=== PATIENT | male | born 1975 | race Caucasian/White ===

== ENCOUNTER → 2018-02-27 08:45 | Outpatient (CLI) | payer OTHER, SELFPAY ==
[2018-02-27 12:10] LABS: Absolute Lymphocyte Count 1.73 X10^3/ul (0.83-4.51); Absolute Neutrophil Count 3.9 X10^3/uL (2.0-7.7); Basophil# 0.01 X10^3/uL; Basophil% 0.2 % (0-1); Eosinophils% 1.6 % (0-5); Hematocrit 43.1 % (40-54); Hemoglobin 13.7 g/dl (13.0-16.5); Lymphocyte # 1.73 X10^3/ul (4.0); Lymphocyte % 27.4 % (19-41); Mean Corp Hgb Conc 31.8 g/gl (32-36); Mean Corpuscular Hgb 28.9 pg (27.0-32.0); Mean Corpuscular Volume 90.9 fL (80-94); Mean Platelet Vol. 11.3 fl (6.2-12.0); Monocyte# 0.61 X10^3/uL; Monocyte% 9.7 % (0-10); Neutrophil # 3.87 X10^3/uL (2.7-7.7); Neutrophil % 61.1 % (47-70); Platelet Count 211 K/mm3 (150-450); RBC Distribution Width CV 14.5 % (11.6-14.6); RBC Distribution Width SD 47.6 fl (35.1-43.9); Red Blood Count 4.74 M/mm3 (4.6-6.2); White Blood Count 6.3 K/mm3 (4.4-11.0)
[2018-02-27 12:16] LABS: POSITIVE COUNT NO; POSITIVE DIFFERENTIAL NO; POSITIVE MORPHOLOGY NO
[2018-02-27 12:37] LABS: ALB/GLOB Ratio 1.3 RATIO (0.9-2.4); AST(SGOT) 26 U/L (15-37); Alanine Aminotransfer ALT/SGPT 52 U/L (16-61); Albumin, Serum 4.2 g/dL (3.2-5.0); Alkaline Phosphatase 75 U/L (45-117); Anion Gap 5 (5-15); BUN 23 mg/dL (7-18); BUN/Creat Ratio 23.6 RATIO (10-20); Calcium,Total 8.6 mg/dL (8.5-10.1); Chloride 105 mmol/L (98-107); Cholesterol 144 mg/dL (200); Creatinine, Serum 0.98 mg/dL (0.70-1.30); EST Glomerular Filtration Rate 90 mL/min (>60); Est Glom Filt Rate - Afr Amer 108 mL/min (>60); Globulin 3.2 g/dL (2.2-4.2); Glucose 82 mg/dL (74-106); High Density Lipoprotein 54 mg/dL; Potassium 4.5 mmol/L (3.5-5.1); Protein, Total 7.4 g/dL (6.4-8.2); Sodium Level 139 mmol/L (136-145); Triglycerides 38 mg/dL; Very Low Density Lipoprotein 8 mg/dL (5-40)
== END ==
PROVIDERS: Family Provider Family Medicine; PCP Family Medicine; Visit Provider Family Medicine
DX: Z00.00 Encounter for general adult medical examination without abnormal findings (principal)
CPT/HCPCS: 36415; 80053; 80061; 85025

== ENCOUNTER 2019-04-28 22:37 | Emergency (ER) | payer OTHER, SELFPAY ==
[2019-04-28 22:38] VITALS: BP 156/97; PULSE 76; RESP 22; TEMP 36.3; O2SAT 100; BMI 31.1
[2019-04-28 23:23] LABS: White Blood Cells 0 SEEN /hpf (0-5)
[2019-04-28 23:27] LABS: Absolute Lymphocyte Count 1.72 X10^3/ul (0.83-4.51); Absolute Neutrophil Count 12.5 X10^3/uL (2.0-7.7); Basophil# 0.01 X10^3/uL; Basophil% 0.1 % (0-1); Eosinophil# 0.07 X10^3/uL; Eosinophils% 0.5 % (0-5); Hematocrit 42.1 % (40-54); Hemoglobin 13.9 g/dl (13.0-16.5); Lymphocyte # 1.72 X10^3/ul (4.0); Lymphocyte % 11.5 % (19-41); Mean Corpuscular Hgb 29.4 pg (27.0-32.0); Mean Corpuscular Volume 89.2 fL (80-94); Mean Platelet Vol. 10.1 fl (6.2-12.0); Monocyte# 0.62 X10^3/uL; Monocyte% 4.1 % (0-10); Neutrophil % 83.7 % (47-70); Platelet Count 207 K/mm3 (150-450); RBC Distribution Width CV 13.6 % (11.6-14.6); RBC Distribution Width SD 44.3 fl (35.1-43.9); Red Blood Count 4.72 M/mm3 (4.6-6.2); White Blood Count 14.9 K/mm3 (4.4-11.0)
[2019-04-28 23:28] LABS: Color, Urine Yellow (Yellow); Glucose, Dipstick Normal (Normal); Ketone-Dipstick 5 mg/dl (Negative); Leukocyte Esterase-Dipstick Negative /ul (Negative); Nitrite-Dipstick Negative (Negative); Occult Blood-Urine 50 /ul (Negative); Protein-Dipstick Negative (Negative); Urine Bilirubin Dipstick Negative (Negative); Urine Clarity Clear (Clear); Urine Urobilinogen Normal (Normal); Urine pH 6.5 (5.0 - 8.0)
[2019-04-28 23:33] LABS: POSITIVE COUNT NO; POSITIVE DIFFERENTIAL NO; POSITIVE MORPHOLOGY NO
[2019-04-28 23:35] LABS: Amorphous Sediment 1+; Mucous, Urine 1+ /hpf (<or=2+); Red Blood Cells-Urine 5-10 SEEN /hpf (0-5)
[2019-04-28 23:36] LABS: Bacteria RARE /hpf (None Seen); Squamous Epithelial Cells - UA 0-5 SEEN /hpf (0-5)
[2019-04-28 23:40] LABS: Anion Gap 5 (5-15); BUN 33 mg/dL (7-18); BUN/Creat Ratio 22.9 RATIO (10-20); Calcium,Total 9.1 mg/dL (8.5-10.1); Chloride 105 mmol/L (98-107); Creatinine, Serum 1.44 mg/dL (0.70-1.30); EST Glomerular Filtration Rate 57 mL/min (>60); Est Glom Filt Rate - Afr Amer 69 mL/min (>60); Estimated Creatinine Clearance 63.99 ml/min; Glucose 160 mg/dL (74-106); Potassium 4.3 mmol/L (3.5-5.1); Sodium Level 137 mmol/L (136-145)
--- NOTE | 2019-04-29 00:04 | ED.DCSUM_ITS ---
- ER Visit Summary Date of Service: 04/29/19 Chief Complaint: Right flank pain History of Present Illness: The patient is a 43 M presenting with right flank pain. He states this started suddenly around 8 PM. He has pain in his right flank that radiates to his right groin. He has no personal history of kidney stones. He does have a family history of kidney stones. He tried ibuprofen at home. States the pain is starting to subside. He noticed his urine was darker than normal. Denies other complaints. Physical Examination: Vitals are stable. Patient is afebrile. Alert no acute distress. HEENT exam is unremarkable. Neck is supple. Lungs are clear and equal bilaterally. Heart is regular rate and rhythm. Abdomen is soft nontender nondistended. Back: Mild right CVA tenderness Extremities are unremarkable. Skin is warm and dry. Remainder of exam is unremarkable. Emergency Department Course and Treatment: CBC shows white count 14.9. Glucose 160, BUN 33, creatinine 1.44. Urinalysis shows 0 white cells, 5-10 red blood cells. He is given IV fluids. He declines pain medications. CT abdomen pelvis shows mild right hydronephrosis and hydroureter with a punctate right UVJ calculus. On reevaluation, patient remains comfortable. He is given a short course of [place] for home. He is advised to follow-up with urology. Advised return to ED if worsening complaints. Disposition: Discharge home Impression: Urolithiasis This note was generated with [employer] dictation software. It may contain incorrect words, spelling, and punctuation that were not noted in review of the chart prior to signing ED Disposition - Plan for ED Patient: Instructions: ED Stone Renal W Colic Prescriptions: Hydrocodone Bitart/Apap 5-325 [[place] 5MG-325MG] 1 tablet PO Q6H PRN PRN 3 Days #10 tablet PRN Reason: Pain Referrals: Branden Jones MD [STAFF PHYSICIAN] - Jonas Betancourt DO [Primary Care Provider] -
[2019-04-29 00:07] VITALS: BP 148/90; PULSE 76; RESP 16; O2SAT 98
[2019-04-29] MEDS: 0.9% Normal Saline 1,000 ML 999 ML IV (00:19)
--- NOTE | 2019-04-29 01:40 | DCINST.ED_ITS ---
ED Disposition - Plan for ED Patient: Instructions: ED Stone Renal W Colic Prescriptions: Hydrocodone Bitart/Apap 5-325 [[place] 5MG-325MG] 1 tablet PO Q6H PRN PRN 3 Days #10 tablet PRN Reason: Pain Referrals: Jonas Betancourt DO [Primary Care Provider] - Branden Jones MD [STAFF PHYSICIAN] -
[2019-04-29] MEDS: HYDROcodone Bitartrate/Apap 5/325 Tablet PO (01:52)
[2019-04-29 01:54] VITALS: BP 135/85; PULSE 71; RESP 16; O2SAT 98
--- NOTE | 2019-04-29 23:55 | CT_ITS ---
STUDY: CT ABDOMEN AND PELVIS WITHOUT CONTRAST REASON FOR EXAM: Male, 43 years old. Right flank pain radiating to right lower quadrant and groin, dysuria, elevated blood pressure. RADIATION DOSAGE (If Supplied By Facility): CTDIvol = ( 10.63 ) mGy, DLP = ( 565.70 ) mGycm TECHNIQUE: Transaxial 2.5 mm images were obtained from the dome of the diaphragm to the symphysis pubis without oral contrast, and without intravenous contrast. Sagittal and coronal images were reconstructed. This examination is limited for the evaluation of gastrointestinal, solid organs and vascular structures due to the lack of intravenous and oral contrast. Individualized dose optimization techniques were used for this CT. COMPARISON: None. FINDINGS: The visualized lung bases are unremarkable. The visualized portions of the heart are within normal limits. Normal liver. Normal gallbladder and extrahepatic biliary system. There is a round low-attenuation in the posterior spleen of 1 x 1.1 cm measuring water density. This accessory splenic tissue. Otherwise normal spleen. Normal pancreas. Normal bilateral adrenal glands. Mild right hydronephrosis and hydroureter with a distal right ureteral calculus of approximately 1 mm image 157 series 2. 1 to 2 mm nonobstructing right upper renal pole calculus. Punctate left inferior renal pole calculus without obstruction. Normal left kidney. Normal visualized stomach. Normal small intestine. There is moderate amount of fecal material. There is otherwise normal colon. The appendix is visualized and appears normal. Image 135-147 series 2. Normal abdominal aorta. Normal inferior vena cava. Normal retroperitoneum. Normal urinary bladder. There are prostatic calcifications. Normal abdominal wall. Density along the right anterior superior acetabulum may represent nonunion of accessory ossification centers versus early degenerative changes. Normal osseous structures. CT/Abdomen/Pelvis without Cont IMPRESSION: Mild right hydronephrosis and hydroureter with a punctate right UVJ calculus. Bilateral tiny nonobstructing renal calculi. Normal appendix. There is moderate amount of fecal material. There is no obstruction. Small splenic cyst or hemangioma. Osseous changes as above. Electronically Signed: Estefania Dyson MD at 1:25 EDT , Service support ,
== END 2019-04-29 01:55 | disposition home or self-care (01) ==
LOC: ED 04-29 00:05
PROVIDERS: Emergency Provider Emergency Medicine; Family Provider Family Medicine; PCP Family Medicine
DX: N13.2 Hydronephrosis with renal and ureteral calculous obstruction (principal); F90.9 Attention-deficit hyperactivity disorder, unspecified type; F41.9 Anxiety disorder, unspecified; Z79.899 Other long term (current) drug therapy
CPT/HCPCS: 74176; 80048; 81001; 85025; 96360; 99283; J7030; A4216

== ENCOUNTER → 2020-06-30 09:31 | Outpatient (CLI) | payer OTHER, SELFPAY | PROVIDERS: PCP Family Medicine; Visit Provider Family Medicine | DX: N20.9 Urinary calculus, unspecified (principal) | CPT/HCPCS: 82360 ==

== ENCOUNTER → 2024-01-06 | Outpatient (CLI) | payer OTHER, SELFPAY ==
[2024-01-06 12:29] LABS: AST(SGOT) 15 U/L (15-37); Alanine Aminotransfer ALT/SGPT 50 U/L (16-61); Albumin, Serum 4.2 g/dL (3.2-5.0); Alkaline Phosphatase 92 U/L (45-117); Anion Gap 4 (5-15); BUN 24 mg/dL (7-18); BUN/Creat Ratio 22.6 RATIO (10-20); Calcium,Total 9.4 mg/dL (8.5-10.1); Chloride 106 mmol/L (98-107); Cholesterol 146 mg/dL (200); Creatinine, Serum 1.06 mg/dL (0.70-1.30); EST Glomerular Filtration Rate 79 mL/min (>60); Est Glom Filt Rate - Afr Amer 96 mL/min (>60); Globulin 4.2 g/dL (2.2-4.2); Glucose 107 mg/dL (74-106); High Density Lipoprotein 55 mg/dL; Protein, Total 8.4 g/dL (6.4-8.2); Sodium Level 139 mmol/L (136-145); Triglycerides 39 mg/dL; Very Low Density Lipoprotein 8 mg/dL (5-40)
== END | disposition home or self-care (01) ==
LOC: BFHLAB 08:47
PROVIDERS: PCP Family Medicine; Visit Provider Family Medicine
DX: Z00.00 Encounter for general adult medical examination without abnormal findings (principal)
CPT/HCPCS: 36415; 80053; 80061

== ENCOUNTER → 2024-01-10 | Outpatient (CLI) | payer OTHER, SELFPAY ==
--- NOTE | 2024-01-10 16:38 | CT_ITS ---
STUDY: CT ABDOMEN AND PELVIS WITHOUT CONTRAST REASON FOR EXAM: Male, 48 years old. FLANK PAIN RADIATION DOSAGE (If Supplied By Facility): CTDIvol = ( 11.81 ) mGy, DLP = ( 584.44 ) mGycm TECHNIQUE: Transaxial images were obtained from the dome of the diaphragm to the symphysis pubis without oral contrast, and without intravenous contrast. Sagittal and coronal images were reconstructed. Individualized dose optimization techniques were used for this CT. COMPARISON: In. FINDINGS: The visualized lung bases are unremarkable. The visualized portions of the heart are within normal limits. Normal liver. Possible sludge within the gallbladder, otherwise unremarkable biliary system. Normal spleen. Normal pancreas. Normal bilateral adrenal glands. Normal right kidney. Normal left kidney. Normal visualized stomach. Normal small intestine. Normal colon. The appendix is visualized and appears normal. There is mild atherosclerotic calcification of the abdominal aorta, without a demonstrated aneurysm. Normal inferior vena cava. Normal retroperitoneum. Normal urinary bladder. Normal visualized prostate gland. Normal abdominal wall. There are mild degenerative changes of the visualized lumbar spine. CT/Abdomen/Pelvis without Cont IMPRESSION: Possible sludge within the gallbladder, remainder of abdominal viscera and bilateral kidneys are unremarkable. Specifically, no intrarenal stone or hydronephrosis. No acute appendicitis or bowel obstruction. Electronically Signed: Carly Sanchez MD at 2:44 EST ,
--- OUTSIDE RECORDS SUMMARY | 2024-01-10 17:39 | XMS RPT_ITS | CCD ---
Author Name Unknown Address [address] [place] [address] Organization [facility] Care Team Providers Care Knot Bumper Name Role Phone MINERVA TITUS MD Admitting Unavailable MINERVA TITUS MD Primary Care Unavailable MINERVA TITUS MD Attending Unavailable WENDY, DOCTOR ON Referring Unavailable HARRISON BETANCOURT Consulting Unavailable PROVIDER, UNKNOWN Consulting Unavailable BELLA PEREZ Admitting Unavailable BELLA PEREZ Primary Care Unavailable BELLA PEREZ Attending Unavailable HARRISON BETANCOURT Consulting Unavailable PROVIDER, UNKNOWN Consulting Unavailable Harrison Betancourt DO Primary Care Provider HARRISON BETANCOURT Primary Care Unavailable Medications Completed/Discontinued Medications Medication Drug Class(es) Dates Sig (Normalized) Sig (Original) atomoxetine 40 mg oral capsule (1 source) Norepinephrine Reuptake Inhibitor Start: 11-26-2023 take 1 capsule by mouth every twelve hours atomoxetine (STRATTERA) 40 mg capsule Take 1 capsule by mouth every 12 hours. 0 11/26/2023 Active Problems Problem Classification Problem Date Documented Da te Episodic/Chronic Adjustment disorders (1 source) Adjustment disorder with depressed mood; Translations: [Adjustment disorder with depressed mood] Onset: 08-17-2009 08-17-2009 Chronic Anxiety disorders (1 source) Anxiety; Translations: [Anxiety disorder, unspecified] Onset: 08-17-2009 08-17-2009 Chronic Immunizations and screening for infectious disease (2 sources) Contact with and (suspected) exposure to other viral communicable diseases; Translations: [Contact with and (suspected) exposure to other viral communicable diseases] Onset: 11-29-2020 Episodic Other endocrine disorders (1 source) Male hypogonadism; Translations: [Testicular hypofunction] Onset: 12-21-2010 12-21-2010 Chronic Other upper respiratory infections (2 sources) Sore throat symptom; Translations: [Acute pharyngitis, unspecified] 12-08-2023 Episodic Unclassified (1 source) COVID-19; Translations: [COVID-19] Onset: 11-29-2020 Unclassified (1 source) Elevated blood pressure; Translations: [Elevated blood pressure] Onset: 12-07-2009 12-07-2009 Results Test Name Value Interpretation Reference Range Facil ity Vital Signs Date Time Vital Sign Value Performing Clinician Faci lity 12-08-2023 08:42-0500 Body temperature 97.9 [degF] Arabella Apple APRN.INVENTORY TRANSCRIBER Work Phone: [facility] 12-08-2023 08:42-0500 Body weight 99.79 kg Arabella Apple APRN.INVENTORY TRANSCRIBER Work Phone: [facility] 12-08-2023 08:42-0500 Diastolic blood pressure 100 mm[Hg] Arabella Apple APRN.INVENTORY TRANSCRIBER Work Phone: [facility] 12-08-2023 08:42-0500 Heart rate 85 /min Arabella Apple APRN.INVENTORY TRANSCRIBER Work Phone: [facility] 12-08-2023 08:42-0500 Respiratory rate 18 /min Arabella Apple APRN.INVENTORY TRANSCRIBER Work Phone: [facility] 12-08-2023 08:42-0500 SaO2% (BldA) [Mass fraction] 100 % Arabella Apple APRN.INVENTORY TRANSCRIBER Work Phone: [facility] 12-08-2023 08:42-0500 Systolic blood pressure 160 mm[Hg] Arabella Apple APRN.INVENTORY TRANSCRIBER Work Phone: [facility] Encounters Encounter Date Encounter Type Care Provider Facility Start: 12-08-2023 End: 12-08-2023 ambulatory [facility] Facility:[facility] Start: 12-08-2023 End: 12-08-2023 Patient encounter procedure Arabella Apple APRN.CNP Work Phone: [facility] Procedures Date Procedure Procedure Detail Performing Clinician Start: 12-08-2023 STREP A MOLECULAR (POC) Arabella Apple APRN.INVENTORY TRANSCRIBER Work Phone: Start: 06-17-2020 Urinalysis MINERVA Jennings Plan of Treatment Date Care Activity Detail Author Start: 12-08-2023 End: 12-22-2023 COVID & INFLUENZA A/B & RSV NAAT, ROUTINE COVID & INFLUENZA A/B & RSV NAAT, ROUTINE Microbiology Routine URI, acute Expected: 12/08/2023, Expires: 12/22/2023 [facility] Work Phone: Payers Date Payer Category Payer Unknown [id number] 2023 Unknown MMO MMO [employer] xxxx [id number] 2023-Present [phone] [address] [place] [address] Indemnity [id number] 1975 Unknown [id number] 1975 Unknown [id number] Unknown [id number] Social History Date Type Detail Facility Start: [facility]-08-2023 [facility] History of tobacco use Cigarette Smoker [facility] Start: 12-08-2023 Tobacco use and exposure User of smo keless tobacco [facility] End: 12-02-2007 History of tobacco use Snuff User [facility] Start: 12-08-2023 Alcohol intake Current drinke r of alcohol (finding) [facility] Start: 12-08-2023 History of Social function [facility] Start: 12-08-2023 Tobacco use panel [facility] Start: 12-08-2023 Tobacco Comment 1 can per day [facility] Start: 1975 Sex Assigned At Not on file [facility] Progress note 12-08-2023 Note Date & Type Note Facility 12-08-2023 Note HNO ID: [id number] Author: ARABELLA APPLE APRN.INVENTORY TRANSCRIBER Service: ? Author Type: Nurse Practitioner Type: Progress Notes Filed: 12/08/2023 09:09 Note Text: CC: Patient presents with: Head Congestion: ST, cough x5 days HPI: Billie Ash is a 48 year old male who presents to the office with complaint of head congestion, cough, nonproductive, and sore throat for 5 days. Symptoms are staying the same. Associated symptoms includes sore throat. Denies fever, nausea, vomiting , and diarrhea. Treatments tried include nothing so far. with no relief of symptoms. Sick contacts: unknown. History of asthma, frequent episodes of bronchitis, chronic bronchitis, bronchiectasis or COPD: No Smoker: No Seasonal/environmental allergies: No The ROS is otherwise negative. The patient's pmh, medications, allergies, and past visits are reviewed. PHYSICAL EXAM: BP 160/100 Pulse 85 Temp 36.6 ?C (97.9 ?F) Resp 18 Wt 99.8 kg (220 lb) SpO2 100% BMI 33.45 kg/m? General appearance: alert, cooperative, pleasant, in no acute distress Head: Normocephalic Eyes: EOM's intact, conjunctiva pink and moist, no icterus, sclera white, non-injected Ears: Right ear: External ear/canal- Normal, TM - clear with good landmarks. Left ear: External ear/canal- Normal, TM - clear with good landmarks Oropharynx:mild erythema, without exudates present Heart: Negative. RRR without obvious murmur, gallop, or rubs. No ectopy. Lungs: clear to auscultation, without rales or wheeze, good air exchange PAST MEDICAL HISTORY Diagnosis Date Anxiety No past surgical history on file. ALLERGIES Patient has no known allergies. MEDICATIONS atomoxetine (STRATTERA) 40 mg capsule Take 1 capsule by mouth every 12 hours. busPIRone (BUSPAR) 15 mg tablet Take 15 mg by mouth three times daily. FAMILY HISTORY Problem Relation Age of Onset Diabetes Father Hypertension Father Cancer Maternal Grandfather throat cancer Social History Tobacco Use Smoking status: Never Smokeless tobacco: Current Types: Snuff Last attempt to quit: 12/02/2007 Tobacco comments: 1 can per day Substance Use Topics Alcohol use: Yes Comment: 1-2 times per year Drug use: No ASSESSMENT/PLAN: 1. Sore throat - ICD9: 462, ICD10: J02.9 (primary diagnosis) - STREP A MOLECULAR (POC) - neg 2. URI, acute - ICD9: 465.9, ICD10: J06.9 - COVID AND INFLUENZA A/B AND RSV NAAT, ROUTINE Prescription instructions reviewed with patient as applicable. Potential red flag symptoms discussed with the patient. Reviewed appropriate action plan to take if red flag symptoms occur. Patient agreeable to treatment plan. Arabella Apple APRN.SPENCER [facility] History of Present illness Narrative 12-08-2023 Arabella Apple APRN.SPENCER - 12/08/2023 8:49 AM EST Note Date & Type Note Facility 12-08-2023 History of Presen t illness Narrative CC: Patient presents with: Head Congestion: ST, cough x5 days HPI: Billie Ash is a 48 year old male who presents to the office with complaint of head congestion, cough, nonproductive, and sore throat for 5 days. Symptoms are staying the same. Associated symptoms includes sore throat. Denies fever, nausea, vomiting , and diarrhea. Treatments tried include nothing so far. with no relief of symptoms. Sick contacts: unknown. History of asthma, frequent episodes of bronchitis, chronic bronchitis, bronchiectasis or COPD: No Smoker: No Seasonal/environmental allergies: No The ROS is otherwise negative. The patient's pmh, medications, allergies, and past visits are reviewed. PHYSICAL EXAM: BP 160/100 Pulse 85 Temp 36.6 C (97.9 F) Resp 18 Wt 99.8 kg (220 lb) SpO2 100% BMI 33.45 kg/m General appearance: alert, cooperative, pleasant, in no acute distress Head: Normocephalic Eyes: EOM's intact, conjunctiva pink and moist, no icterus, sclera white, non-injected Ears: Right ear: External ear/canal- Normal, TM - clear with good landmarks. Left ear: External ear/canal- Normal, TM - clear with good landmarks Oropharynx:mild erythema, without exudates present Heart: Negative. RRR without obvious murmur, gallop, or rubs. No ectopy. Lungs: clear to auscultation, without rales or wheeze, good air exchange PAST MEDICAL HISTORY Diagnosis Date Anxiety No past surgical history on file. ALLERGIES Patient has no known allergies. MEDICATIONS atomoxetine (STRATTERA) 40 mg capsule Take 1 capsule by mouth every 12 hours. busPIRone (BUSPAR) 15 mg tablet Take 15 mg by mouth three times daily. FAMILY HISTORY Problem Relation Age of Onset Diabetes Father Hypertension Father Cancer Maternal Grandfather throat cancer Social History Tobacco Use Smoking status: Never Smokeless tobacco: Current Types: Snuff Last attempt to quit: 12/02/2007 Tobacco comments: 1 can per day Substance Use Topics Alcohol use: Yes Comment: 1-2 times per year Drug use: No ASSESSMENT/PLAN: 1. Sore throat - ICD9: 462, ICD10: J02.9 (primary diagnosis) - STREP A MOLECULAR (POC) - neg 2. URI, acute - ICD9: 465.9, ICD10: J06.9 - COVID & INFLUENZA A/B & RSV NAAT, ROUTINE Prescription instructions reviewed with patient as applicable. Potential red flag symptoms discussed with the patient. Reviewed appropriate action plan to take if red flag symptoms occur. Patient agreeable to treatment plan. Arabella Apple APRN.INVENTORY TRANSCRIBER documented in this encounter [facility] Evaluation note Note Date & Type Note Facility documented in this encounter [facility] Summary Purpose Family History No Family History Records FoundNo Family History Records Found Advance Directives No Advanced Directives Records FoundNo Advanced Directives Records Found Health Concerns Infection Onset Date Last Indicated Resolved Time COVID-19 Rule-Out 12/08/2023 12/08/2023 Additional Source Comments (unrecognized sect ion and content) No Status Records FoundNo Status Records Found INFORMATION SOURCE (unrecogn ized section and content) DATE CREATED AUTHOR AUTHOR'S ORGANIZ ATION 12/08/2023 [facility] Source Comments (unrecognize d section and content) In the event this informatio n is protected by the Federal Confidentiality of Alcohol and Drug Abuse Patient Records regulations: The Federal rules restrict any use of the information to criminally investigate or prosecute any alcohol or drug abuse patient.[facility] Reason for Visit (unrecogniz ed section and content) Care Teams (unrecognized sec tion and content) FOR RECORDS PERTAINING TO PATIENTS WHO ARE OR HAVE BEEN ENROLLED IN A CHEMICAL DEPENDENCY/SUBSTANCEABUSE PROGRAM, SOME INFORMATION MAY BE OMITTED. This clinical summary was aggregated from multiple sources. Caution should be exercised in using it in the provision of clinical care. This summary normalizes information from multiple sources, and as a consequence, information in this document may materially change the coding, format and clinical context of patient data. In addition, data may be omitted in some cases. CLINICAL DECISIONS SHOULD BE BASED ON THE PRIMARY CLINICAL RECORDS. [facility]. provides no warranty or guarantee of the accuracy or completeness of information in this document.
== END | disposition home or self-care (01) ==
PROVIDERS: PCP Family Medicine; Referring Provider Family Medicine; Visit Provider Family Medicine
DX: R10.9 Unspecified abdominal pain (principal)
CPT/HCPCS: 74176

== ENCOUNTER 2024-06-19 00:54 | Emergency (ER) | payer OTHER, SELFPAY ==
[2024-06-19 00:54] VITALS: BP 177/103; PULSE 76; RESP 16; TEMP 36.3; O2SAT 98; BMI 33.5
--- NOTE | 2024-06-19 01:21 | EDS_ITS ---
HPI HPI - GI History of Present Illness Chief Complaint: Abd Pain Informant: patient Narrative Narrative: Patient presents with abdominal pain epigastrium radiating down to the infraumbilical area but also in the middle. It has been waxing and waning throughout the day it has not been severe but it has been uncomfortable. No nausea or vomiting. Started about an hour after lunch around noon, and has been present all day despite taking a dose of Gas-X. He states this morning before the pain started, he tried to have a bowel movement but only few small hard ajay came out and he felt like he was constipated and did not go enough. Therefore considering that is a possibility, couple hours ago he took some stimulant laxatives but has not had any effect yet. No history of any abdominal surgeries. Patient states he eats a lot of cheese, every day. PFSH PFS Medical History ADHD Home Medications ?Medication ?Instructions ?Recorded ?Last Taken ?Type Fish Oil 1,000 mg PO DAILY 04/29/19 Unknown History atomoxetine 40 mg capsule 80 mg PO DAILY 04/29/19 Unknown History buspirone 15 mg tablet 10 mg PO TID 04/29/19 Unknown History hyoscyamine sulfate 0.125 mg tablet 0.125 - 0.25 mg (1 - 2 x 0.125 mg) 06/19/24 Unknown Rx PO Q6H PRN abdominal discomfort #20 tabs Allergy/AdvReac Type Severity Reaction Status Date / Time No Known Allergies Allergy Verified 06/19/24 01:00 Social History Smoking Status: Current every day smoker tobacco type: smokeless tobacco ROS ROS ED Constitutional Constitutional ED: Denies chills or fever(s) Eyes Eyes: Denies change in vision or diplopia ENT ENT ED: Denies rhinorrhea or sore throat Cardiovascular Cardiovascular: Denies chest pain or palpitations Respiratory/Chest Respiratory/Chest: Denies cough or dyspnea Gastrointestinal Gastrointestinal: Reports abdominal pain, constipation and other Details: No radiation of epigastric/periumbilical discomfort into the back or shoulder ; Denies diarrhea, melena, nausea or vomiting Genitourinary Genitourinary ED: Denies dysuria or hematuria Musculoskeletal Musculoskeletal: Denies back pain or neck pain Integumentary Denies abscess or rash Neurologic Neurologic: Denies headache(s), paresthesias or weakness Psychiatric Psychiatric: Denies anxiety or suicidal thoughts EXAM Physical Exam Const Vital Signs: 06/19/24 00:54 06/19/24 02:54 Temperature 97.3 F L Temperature Source Temporal Pulse Rate 76 60 Respiratory Rate 16 18 Blood Pressure 177/103 H 157/104 H Blood Pressure Mean 127 121 Pulse Ox 98 98 Oxygen Delivery Method Room Air Room Air Positive well nourished and well developed General Appearance ED: well developed and NAD HEENT Reports moist mucous membranes normocephalic and atraumatic Eyes PERRL and EOMs intact bilaterally Neck full ROM and supple Resp normal respiratory effort and clear to auscultation bilaterally Cardio regular rate, regular rhythm and no murmurs GI non-tender and non-distended GI Narrative: Not able to reproduce pain to any significant degree. Negative Hoang's. Auscultation: normoactive bowel sounds Palpation: soft Back/Spine no CVA tenderness General Back: other FROM Extremity normal to inspection General Extremety ED: Negative for edema, pulses abnormal or tenderness General Extremity: Negative for edema or pulses abnormal Neuro oriented x3, CN's II-XII intact bilaterally and no sensory deficits noted Sensorium / Orientation: awake and alert Motor Exam: strength 5/5 throughout Skin no rashes or lesions noted and no wounds MDM MDM MDM Narrative Medical decision making narrative: Given that the patient is having discomfort but is nontender, biliary colic and pancreatitis are much less likely. I did do a bedside ultrasound, and on my interpretation of it there is no cholelithiasis, his gallbladder wall is within normal limits at 0.23 cm, and he has a negative sonographic Hoang's eliciting no pain. My suspicion is that he is constipated and that is causing intestinal spasm/pain. He states that the nature of the discomfort is somewhat sharp at times, consistent with this. I offered an enema but he really does not want to do that. I offered blood test in order to reassure him that hopefully they are normal and consistent with constipation as well as a KUB which she was amenable to that. I reviewed those labs they are unremarkable, there is a mild nonspecific l eukocytosis but the liver enzymes and lipase are normal. Also reviewed 2 view KUB which in my interpretation shows a significant amount of colonic stool, nonspecific bowel gas pattern and is otherwise unremarkable. Patient still not wanting to do an enema which is fine, but he understands it might give him quicker relief and resolution of symptoms. He was given IV fluids, Mylanta, and a dose of oral dicyclomine. Afterwards, he was having more spasms of pain. As I discussed with him I think it is constipation that is causing bowel spasms, and we talked more about soapsuds enema which she was then amenable to because he wants quicker relief. This was done, he did have medium sized bowel movement in the end, felt a little better but still had pain, not as bad as what he had earlier. He is comfortable going home and waiting for more bowel movement to occur. Will prescribe him some Levsin since the Bentyl did not seem to make a large difference, he can use it if needed, we discussed reasons to return but at this time although we considered I do not think he needs a CT abdomen/pelvis because of the reason that I think this is fairly clearly intestinal spasm due to constipation, in my judgment. Lab Data Attestation: I reviewed the patient's lab results. Labs: Laboratory Results - last 24 hr 06/19/24 01:28 WBC 12.6 H RBC 4.92 Hgb 14.0 Hct 42.7 MCV 86.8 MCH 28.5 MCHC 32.8 RDW Std Deviation 41.4 RDW Coeff of Anthony 13.0 Plt Count 244 MPV 10.1 Immature Gran % (Auto) 0.300 Neut % (Auto) 79.8 H Lymph % (Auto) 12.2 L [place] % (Auto) 6.9 Eos % (Auto) 0.6 Baso % (Auto) 0.2 Absolute Neuts (auto) 10.0 H Absolute Lymphs (auto) 1.54 Nucleated RBC % 0 Sodium 137 Potassium 3.4 L Chloride 104 Carbon Dioxide 26.0 Anion Gap 7 BUN 21 H Creatinine 0.92 Estim Creat Clear Calc 112.67 Est GFR (MDRD) Af Amer 112 Est GFR (MDRD) Non-Af 93 BUN/Creatinine Ratio 22.8 H Glucose 112 H Calcium 8.5 Total Bilirubin 0.50 AST 22 ALT 38 Alkaline Phosphatase 62 Total Protein 7.4 Albumin 4.2 Globulin 3.2 Albumin/Globulin Ratio 1.3 Lipase 29 Radiography Diagnostic Testing: Clinical Impression(s) from Imaging Studies KUB X-Ray 06/19/24 01:25 IMPRESSION: Moderate amount of stool in the colon. Electronically Signed: Fabrizio Silverman MD at 2:01 EDT , Discharge Plan Triage Chief Complaint: Abd Pain ED Provider: Hieu Schaeffer Dx/Rx/DC Orders Clinical Impression: Abdominal pain, acute, periumbilical, Constipation Instructions: ED Constipation (Adult) Prescriptions: New hyoscyamine sulfate 0.125 mg tablet 0.125 - 0.25 mg PO Q6H PRN (Reason: abdominal discomfort) Qty: 20 0RF No Action buspirone 15 MG tablet 10 mg PO TID atomoxetine 40 MG capsule 80 mg PO DAILY Fish Oil Gel 1,000 mg PO DAILY Primary Care Provider: Jonas Betancourt Referrals: Jonas Betancourt, DO [Primary Care Provider] - 3-5 Days if not improving Activity Restrictions/Additional Instructions: If you continue to eat significant amounts of cheese every day, consider getting some docusate sodium and taking 1 capsule twice daily as a stool softener. Print Language: Zimbabwean Disposition Disposition: Home, Self Care
--- NOTE | 2024-06-19 01:25 | RAD_ITS ---
EXAM: XR ABDOMEN, 1 VIEW CLINICAL INDICATION: mid-abd pain TECHNIQUE: Frontal supine view of the abdomen/pelvis. COMPARISON: No relevant prior studies available. FINDINGS: LOWER THORAX: No acute pathology. GASTROINTESTINAL TRACT: Moderate amount of stool in the colon. Non-obstructive. No bowel or stomach distention. ORGANS: Unremarkable as visualized. No organomegaly. No abnormal calcifications. BONES/JOINTS: No acute pathology. SOFT TISSUES: No acute pathology. RAD/Abdomen Single View IMPRESSION: Moderate amount of stool in the colon. Electronically Signed: Fabrizio Silverman MD at 2:01 EDT ,
[2024-06-19] MEDS: Mag /Aluminum/Simeth WCH UDC 30 ML ORAL.SUSP PO (01:29)
[2024-06-19] MEDS: Dicyclomine 10 MG Capsule 20 MG PO (01:29)
[2024-06-19 01:35] LABS: Absolute Lymphocyte Count 1.54 X10^3/uL (0.83-4.51); Basophil# 0.02 X10^3/uL; Basophil% 0.2 % (0-1); Eosinophil# 0.07 X10^3/uL; Eosinophils% 0.6 % (0-5); Hematocrit 42.7 % (40-54); Lymphocyte # 1.54 X10^3/ul (0.83-4.51); Lymphocyte % 12.2 % (19-41); Mean Corp Hgb Conc 32.8 g/dL (32-36); Mean Corpuscular Hgb 28.5 pg (27.0-32.0); Mean Corpuscular Volume 86.8 fL (80-94); Mean Platelet Vol. 10.1 fl (6.2-12.0); Monocyte# 0.87 X10^3/uL; Monocyte% 6.9 % (0-10); NRBC Flagged by Analyzer 0 % (0-5); Neutrophil # 10.04 X10^3/uL (2.7-7.7); Neutrophil % 79.8 % (47-70); Platelet Count 244 K/mm3 (150-450); RBC Distribution Width SD 41.4 fl (35.1-43.9); Red Blood Count 4.92 M/mm3 (4.6-6.2); White Blood Count 12.6 K/mm3 (4.4-11.0)
[2024-06-19 01:56] LABS: ALB/GLOB Ratio 1.3 RATIO (0.9-2.4); AST(SGOT) 22 U/L (15-37); Alanine Aminotransfer ALT/SGPT 38 U/L (16-61); Albumin, Serum 4.2 g/dL (3.2-5.0); Alkaline Phosphatase 62 U/L (45-117); Anion Gap 7 (5-15); BUN 21 mg/dL (7-18); BUN/Creat Ratio 22.8 RATIO (10-20); Calcium,Total 8.5 mg/dL (8.5-10.1); Chloride 104 mmol/L (98-107); Creatinine, Serum 0.92 mg/dL (0.70-1.30); EST Glomerular Filtration Rate 93 mL/min (>60); Est Glom Filt Rate - Afr Amer 112 mL/min (>60); Estimated Creatinine Clearance 112.67 ml/min; Globulin 3.2 g/dL (2.2-4.2); Glucose 112 mg/dL (74-106); Lipase 29 U/L (13-75); Potassium 3.4 mmol/L (3.5-5.1); Protein, Total 7.4 g/dL (6.4-8.2); Sodium Level 137 mmol/L (136-145)
[2024-06-19 02:54] VITALS: BP 157/104; PULSE 60; RESP 18; O2SAT 98
[2024-06-19 03:21] VITALS: BP 160/101; PULSE 67; RESP 16; TEMP 37.1; O2SAT 98
== END 2024-06-19 03:34 | disposition home or self-care (01) ==
PROVIDERS: Emergency Provider Emergency Medicine; PCP Family Medicine; Visit Provider Emergency Medicine
DX: R10.33 Periumbilical pain (principal); K59.00 Constipation, unspecified; F17.220 Nicotine dependence, chewing tobacco, uncomplicated; F90.9 Attention-deficit hyperactivity disorder, unspecified type; Z79.899 Other long term (current) drug therapy
CPT/HCPCS: 74018; 80053; 83690; 85025; 99285; A4216

== ENCOUNTER 2024-06-19 13:43 | Emergency (ER) | payer OTHER, SELFPAY ==
[2024-06-19] VITALS (9 sets, daily range): BP systolic 128–177; BP diastolic 81–103; PULSE 64–116; RESP 15–22; TEMP 36.2–36.4; O2SAT 94–100; BMI 33.1
--- NOTE | 2024-06-19 14:09 | CT_ITS ---
STUDY: CT ABDOMEN AND PELVIS WITH CONTRAST REASON FOR EXAM: Male, 48 years old. abdominaL pain following a cleansing enema self administered. RADIATION DOSAGE (If Supplied By Facility): CTDIvol = ( 16.03 ) mGy, DLP = ( 2216.93 ) mGycm TECHNIQUE: Transaxial images were obtained from the dome of the diaphragm to the symphysis pubis without oral contrast. IV 100mL Isovue-300 was administered. Sagittal and coronal images were reconstructed. Individualized dose optimization techniques were used for this CT. COMPARISON: Comparison is made with prior study of January 10, 2024. FINDINGS: The visualized lung bases are unremarkable. The visualized portions of the heart are within normal limits. Normal liver. Normal gallbladder and extrahepatic biliary system. Normal spleen. Normal pancreas. Normal bilateral adrenal glands. Normal right kidney. Normal left kidney. There is a small hiatal hernia. Normal small intestine. Focal circumferential wall thickening with luminal narrowing involving the midportion of the ascending colon. There is a 5.2 cm x 7.3 cm soft tissue collection measuring increased density suggestive of possible hematoma in the right retroperitoneum just inferior to the right kidney. On the angiographic images, contrast is seen within it and it might be a bleed at that site from a branch of the superior mesenteric artery. There is also evidence of fluid in the right paracolic gutter posterior to the right hemicolon. Increased markings are seen in the surrounding fat. Inflammatory changes to be ruled out. The appendix is visualized and appears normal. Normal abdominal aorta. Normal inferior vena cava. Normal retroperitoneum. Normal urinary bladder. There are prostatic calcifications. Normal abdominal wall. Normal osseous structures. CT/Abdomen/Pelvis W IV Cont ONLY IMPRESSION: Focal circumferential narrowing in the midportion of the ascending colon with the soft tissue in the right side of the retroperitoneum with the findings suggestive of extravasation of contrast from the branch of the superior mesenteric artery. There is also evidence of high density fluid in the right paracolic gutter. Inflammatory changes are seen. There is also evidence of fluid in the right pararenal space. N.B. : The above Results were Read Back by Salomon Alarcon MD to Daniela Jacome DO, and understanding confirmed on 06/19/2024 15:01:35 (ET). Electronically Signed: Salomon Alarcon MD at 15:02 EDT ,
--- NOTE | 2024-06-19 14:10 | EDS_ITS ---
HPI HPI - GI History of Present Illness Chief Complaint: Abd Pain Informant: patient Narrative Narrative: Patient is a 48 year old male with history of kidney stones, ADD and depression presenting back to the ED for worsening abdominal pain. Patient was seen in the ED early this morning (1AM) for the same symptoms. He had blood work and KUB and was felt to have constipation with associated bowel spasm. Was given an enema with moderate results and ultimately discharged home with an Rx for Levsin. He states since getting home he had 3-4 BMs that were mostly water with some feces mixed in. He went to sleep but throughout the day he has developed worsening epigastric abdominal pain. He states there are waves of pain. He notes the pain is the same as before but more intense. Denies associated N?V. No blood in the stool. Denies any prior abdominal surgeries. No urinary symptoms reported or back pain. [facility] Medical History ADHD Home Medications ?Medication ?Instructions ?Recorded ?Last Taken ?Type atomoxetine 40 mg capsule 80 mg PO DAILY 04/29/19 Unknown History buspirone 15 mg tablet 10 mg PO TID 04/29/19 Unknown History Allergy/AdvReac Type Severity Reaction Status Date / Time No Known Allergies Allergy Verified 06/19/24 13:43 Social History Smoking Status: Current every day smoker tobacco type: smokeless tobacco ROS ROS ED Constitutional Constitutional ED: Reports sweats; Denies chills or fever(s) Cardiovascular Cardiovascular: Denies chest pain or palpitations Respiratory/Chest Respiratory/Chest: Denies cough or dyspnea Gastrointestinal Gastrointestinal: Reports abdominal pain and constipation; Denies nausea or vomiting Genitourinary Genitourinary ED: Denies dysuria or urinary frequency Musculoskeletal Musculoskeletal: Denies arthralgias, back pain or myalgias Integumentary Denies rash Neurologic Neurologic: Denies headache(s) Psychiatric Psychiatric: Reports anxiety EXAM Physical Exam Const Vital Signs: 06/19/24 13:43 06/19/24 15:20 06/19/24 15:49 Temperature 97.2 F L Temperature Source Temporal Pulse Rate 64 71 116 H Respiratory Rate 22 H 16 18 Blood Pressure 145/103 H 177/103 H 138/90 H Blood Pressure Mean 117 127 106 Pulse Ox 100 94 98 Oxygen Delivery Method Room Air Room Air Room Air 06/19/24 16:33 06/19/24 17:09 06/19/24 19:00 Temperature Temperature Source Pulse Rate 103 H 79 111 H Respiratory Rate 15 16 16 Blood Pressure 139/89 H 156/86 H 149/99 H Blood Pressure Mean 105 109 115 Pulse Ox 97 99 100 Oxygen Delivery Method Room Air Room Air Room Air 06/19/24 21:00 06/19/24 22:23 06/19/24 23:02 Temperature 97.5 F L Temperature Source Pulse Rate 87 65 86 Respiratory Rate 16 16 18 Blood Pressure 148/87 H 128/81 H 148/88 H Blood Pressure Mean 107 96 108 Pulse Ox 94 94 96 Oxygen Delivery Method Room Air Room Air Positive well nourished and well developed Constitutional Narrative: Patient sitting on t he bed on his knees leaning on the backrest. General Appearance ED: well developed; Negative for pallor HEENT Reports moist mucous membranes Eyes PERRL and EOMs intact bilaterally Neck supple Resp normal respiratory effort and clear to auscultation bilaterally Cardio regular rate and regular rhythm GI non-tender GI Narrative: mildly distended Auscultation: normoactive bowel sounds Palpation: soft; Negative for tender, guarding or rigid Back/Spine no CVA tenderness Extremity full ROM Neuro Sensorium / Orientation: alert, oriented to person, oriented to place and oriented to time Motor Exam: Negative for general weakness Psych mental status grossly normal Mood & Affect: anxious Skin no wounds General Skin Exam: Negative for jaundice or pallor MDM MDM MDM Narrative Medical decision making narrative: Patient is evaluated for crampy periumbilical/epigastric abdominal pain. He does appear uncomfortable however exam is pretty benign. Will repeat labs and obtain a CT of the abdomen pelvis as well as a lactate. Patient is given IV morphine, Toradol, Zofran and fluids for symptom control. On repeat evaluation he states he is feeling better. He does have a worsening leukocytosis now 14.2. No other significant laboratory abnormalities. CT of the abdomen pelvis shows circumferential narrowing of the midportion of the ascending colon with soft tissue in the right side of the retroperitoneum which is suggestive of extravasation of contrast from a branch of the superior mesenteric artery. This read is discussed with radiologist, Dr. Alarcon. Patient is informed of this findings. I believe patient would benefit from transfer to IR capable facility and needs a higher level of care than [facility] can provide. Patient is agreeable to [facility]. Images are pushed through to [facility] and reviewed by on-call surgeon. Apparently surgeon felt that this would be stable for medical admission as likely benefit from IR/GI consults. I then spoke with Dr. Katz, accepting physician at [facility] on the medicine service. He accepts the patient. Type and screen and coags were added on. Patient is kept on the monitor to ensure that he does not develop findings consistent with acute hemorrhage/shock. Is given a second liter of IV fluids. Will continue to treat his pain with morphine. Patient is intermittently tachycardic in the emergency room. I am not sure how much of this is a symptom of acute blood loss versus anxiety. Ultimately gave him a dose of 0.5 mg Ativan with improvement of his heart rate, blood pressure and is now resting comfortably. Repeat CBC does show a hemoglobin of 12.9 however this after patient received 2 L of IV fluids. Transfer line was notified of this. Patient otherwise remains hemodynamically stable. History & Record Review Additional record(s) reviewed:: Prior ED visit Lab Data Attestation: I reviewed the patient's lab results. Labs: Laboratory Results - last 24 hr 06/19/24 06/19/24 06/19/24 14:15 15:01 15:56 WBC 14.2 H RBC 5.11 Hgb 14.5 Hct 44.6 MCV 87.3 MCH 28.4 MCHC 32.5 RDW Std Deviation 42.0 RDW Coeff of Anthony 13.1 Plt Count 283 MPV 10.3 Immature Gran % (Auto) 0.400 Neut % (Auto) 75.5 H Lymph % (Auto) 14.2 L [place] % (Auto) 8.7 Eos % (Auto) 1.0 Baso % (Auto) 0.2 Absolute Neuts (auto) 10.7 H Absolute Lymphs (auto) 2.01 Nucleated RBC % 0 PT 14.1 INR 1.1 APTT 30.8 Sodium 137 Potassium 3.6 Chloride 103 Carbon Dioxide 24.0 Anion Gap 10 BUN 15 Creatinine 1.16 Estim Creat Clear Calc 88.74 Est GFR (MDRD) Af Amer 86 Est GFR (MDRD) Non-Af 71 BUN/Creatinine Ratio 12.9 Glucose 121 H Lactic Acid 1.8 Calcium 9.0 Total Bilirubin 0.70 AST 20 ALT 39 Alkaline Phosphatase 68 Total Protein 8.0 Albumin 4.4 Globulin 3.6 Albumin/Globulin Ratio 1.2 Lipase 22 Urine Color Yellow Urine Clarity Clear Urine pH 7.0 Ur Specific [place] 1.005 Urine Protein 15 H Urine Glucose (UA) Normal Urine Ketones 5 H Urine Occult Blood Negative Urine Nitrite Negative Urine Bilirubin Negative Urine Urobilinogen Normal Ur Leukocyte Esterase Negative Urine RBC 0 SEEN Urine WBC 0 SEEN Ur Squamous Epith Cells 0 SEEN Urine Bacteria 1+ Urine Mucus 0 SEEN Blood Type Antibody Screen 06/19/24 06/19/24 16:40 19:41 WBC 14.5 H RBC 4.56 L Hgb 12.9 L Hct 39.9 L MCV 87.5 MCH 28.3 MCHC 32.3 RDW Std Deviation 41.7 RDW Coeff of Anthony 13.1 Plt Count 242 MPV 9.9 Immature Gran % (Auto) Neut % (Auto) Lymph % (Auto) [place] % (Auto) Eos % (Auto) Baso % (Auto) Absolute Neuts (auto) Absolute Lymphs (auto) Nucleated RBC % PT INR APTT Sodium Potassium Chloride Carbon Dioxide Anion Gap BUN Creatinine Estim Creat Clear Calc Est GFR (MDRD) Af Amer Est GFR (MDRD) Non-Af BUN/Creatinine Ratio Glucose Lactic Acid Calcium Total Bilirubin AST ALT Alkaline Phosphatase Total Protein Albumin Globulin Albumin/Globulin Ratio Lipase Urine Color Urine Clarity Urine pH Ur Specific [place] Urine Protein Urine Glucose (UA) Urine Ketones Urine Occult Blood Urine Nitrite Urine Bilirubin Urine Urobilinogen Ur Leukocyte Esterase Urine RBC Urine WBC Ur Squamous Epith Cells Urine Bacteria Urine Mucus Blood Type O POSITIVE Antibody Screen NEGATIVE Radiography Diagnostic Testing: Clinical Impression(s) from Imaging Studies Abdomen/Pelvis CT 06/19/24 14:09 IMPRESSION: Focal circumferential narrowing in the midportion of the ascending colon with the soft tissue in the right side of the retroperitoneum with the findings suggestive of extravasation of contrast from the branch of the superior mesenteric artery. There is also evidence of high density fluid in the right paracolic gutter. Inflammatory changes are seen. There is also evidence of fluid in the right pararenal space. N.B. : The above Results were Read Back by Salomon Alarcon MD to Daniela Jacome DO, and understanding confirmed on 06/19/2024 15:01:35 (ET). Electronically Signed: Salomon Alarcon MD at 15:02 EDT , ADDENDUM: 06/19/24 1509 IMPRESSION: Focal circumferential narrowing in the midportion of the ascending colon with the soft tissue in the right side of the retroperitoneum with the findings suggestive of extravasation of contrast from the branch of the superior mesenteric artery. There is also evidence of high density fluid in the right paracolic gutter. Inflammatory changes are seen. There is also evidence of fluid in the right pararenal space. N.B. : The above Results were Read Back by Salomon Alarcon MD to Daniela Jacome DO, and understanding confirmed on 06/19/2024 15:01:35 (ET). Electronically Signed: Salomon Alarcon MD at 15:02 EDT , Rhythm Strip Rhythm Strip: Sinus Rhythm Rate: 63 Ectopy: None EKG Initial EKG: Attestation: I personally reviewed and interpreted this EKG as follows: Interpretation: Sinus Rhythm Comments: Normal sinus rhythm at a rate of 63 bpm Normal axis Normal intervals Normal ST segments Critical Care Time Critical care time (excluding procedures): 30-74 minutes (40), Discussing w/Patient &/or Family/Admission Nurse Coordinator, Discussing w/Consultants and Arranging Admission or Transfer Discharge Plan Triage Chief Complaint: Abd Pain ED Provider: Daniela Jacome Dx/Rx/DC Orders Clinical Impression: Abdominal pain, acute, periumbilical, Hematoma of colon, Injury of superior mesenteric artery Prescriptions: No Action buspirone 15 MG tablet 10 mg PO TID atomoxetine 40 MG capsule 80 mg PO DAILY Primary Care Provider: Jonas Betancourt Referrals: Jonas Betancourt DO [Primary Care Provider] - Print Language: Icelandic Disposition Disposition: Acute Care Hospital Discharge Location: [facility] Discharge Date/Time: 06/19/24 23:13
[2024-06-19] MEDS: Ketorolac 15 MG/ML Vial IV (14:17)
[2024-06-19] MEDS: 0.9% Normal Saline (1000mL) 1,000 ML 999 ML IV ×2 (14:17→16:00)
[2024-06-19] MEDS: Morphine 4 MG/ML Syringe IV ×3 (14:17→19:02)
[2024-06-19] MEDS: Ondansetron 4 MG/2 ML Vial IV (14:17)
--- NOTE | 2024-06-19 14:18 | EKG12_ITS ---
Test Reason : ABD PAIN Blood Pressure : / mmHG Vent. Rate : 063 BPM Atrial Rate : 063 BPM P-R Int : 150 ms QRS Dur : 080 ms QT Int : 390 ms P-R-T Axes : 069 023 037 degrees QTc Int : 399 ms Normal sinus rhythm Normal ECG Confirmed by NALINI FULTON, KARINA ([id number]), website/blog editor NADYA RODRIGUEZ ([id number]) on 06/22/2024 11:19:25 AM Referred By: Confirmed By:KARINA GAYLE MD
[2024-06-19 14:25] LABS: Absolute Lymphocyte Count 2.01 X10^3/uL (0.83-4.51); Absolute Neutrophil Count 10.7 X10^3/uL (2.0-7.7); Basophil# 0.03 X10^3/uL; Basophil% 0.2 % (0-1); Eosinophil# 0.14 X10^3/uL; Hematocrit 44.6 % (40-54); Hemoglobin 14.5 g/dL (13.0-16.5); Lymphocyte # 2.01 X10^3/ul (0.83-4.51); Lymphocyte % 14.2 % (19-41); Mean Corp Hgb Conc 32.5 g/dL (32-36); Mean Corpuscular Hgb 28.4 pg (27.0-32.0); Mean Corpuscular Volume 87.3 fL (80-94); Mean Platelet Vol. 10.3 fl (6.2-12.0); Monocyte# 1.23 X10^3/uL; Monocyte% 8.7 % (0-10); NRBC Flagged by Analyzer 0 % (0-5); Neutrophil # 10.69 X10^3/uL (2.7-7.7); Neutrophil % 75.5 % (47-70); Platelet Count 283 K/mm3 (150-450); RBC Distribution Width CV 13.1 % (11.6-14.6); Red Blood Count 5.11 M/mm3 (4.6-6.2); White Blood Count 14.2 K/mm3 (4.4-11.0)
[2024-06-19 14:44] LABS: ALB/GLOB Ratio 1.2 RATIO (0.9-2.4); AST(SGOT) 20 U/L (15-37); Alanine Aminotransfer ALT/SGPT 39 U/L (16-61); Albumin, Serum 4.4 g/dL (3.2-5.0); Alkaline Phosphatase 68 U/L (45-117); Anion Gap 10 (5-15); BUN 15 mg/dL (7-18); BUN/Creat Ratio 12.9 RATIO (10-20); Chloride 103 mmol/L (98-107); Creatinine, Serum 1.16 mg/dL (0.70-1.30); EST Glomerular Filtration Rate 71 mL/min (>60); Est Glom Filt Rate - Afr Amer 86 mL/min (>60); Estimated Creatinine Clearance 88.74 ml/min; Globulin 3.6 g/dL (2.2-4.2); Glucose 121 mg/dL (74-106); Lipase 22 U/L (13-75); Potassium 3.6 mmol/L (3.5-5.1); Sodium Level 137 mmol/L (136-145)
[2024-06-19 15:07] LABS: Mucous, Urine 0 SEEN /hpf (<or=2+); Red Blood Cells-Urine 0 SEEN /hpf (0-5); Squamous Epithelial Cells - UA 0 SEEN /hpf (0-5)
[2024-06-19 15:09] LABS: Lactic Acid 1.8 mmol/L (0.4-1.9)
[2024-06-19 15:11] LABS: Color, Urine Yellow (Yellow); Glucose, Dipstick Normal (Normal); Ketone-Dipstick 5 mg/dl (Negative); Leukocyte Esterase-Dipstick Negative /ul (Negative); Nitrite-Dipstick Negative (Negative); Occult Blood-Urine Negative /ul (Negative); Protein-Dipstick 15 mg/dl (Negative); Specific Gravity, Urine 1.005 (1.002-1.030); Urine Bilirubin Dipstick Negative (Negative); Urine Clarity Clear (Clear); Urine Urobilinogen Normal (Normal)
--- NOTE | 2024-06-19 15:38 | NURSING ---
CALLED [facility], TALKED TO KIRK LOZADA FACESHEET AND CT RESULTS HAD CT TRANSMIT RESULTS
[2024-06-19 15:49] LABS: Bacteria 1+ /hpf (None Seen)
[2024-06-19 15:50] LABS: White Blood Cells 0 SEEN /hpf (0-5)
[2024-06-19 16:15] LABS: International Normalized Ratio 1.1; Prothrombin Time (Protime)PT. 14.1 SECONDS (11.7-14.9)
[2024-06-19 16:16] LABS: Partial Thromboplast Time 30.8 Seconds (24.1-36.2)
[2024-06-19] MEDS: LORazepam 2 MG/ML Syringe 0.5 MG IV (19:42)
[2024-06-19 19:49] LABS: Hematocrit 39.9 % (40-54); Hemoglobin 12.9 g/dL (13.0-16.5); Mean Corp Hgb Conc 32.3 g/dL (32-36); Mean Corpuscular Hgb 28.3 pg (27.0-32.0); Mean Corpuscular Volume 87.5 fL (80-94); Mean Platelet Vol. 9.9 fl (6.2-12.0); Platelet Count 242 K/mm3 (150-450); RBC Distribution Width CV 13.1 % (11.6-14.6); RBC Distribution Width SD 41.7 fl (35.1-43.9); Red Blood Count 4.56 M/mm3 (4.6-6.2); White Blood Count 14.5 K/mm3 (4.4-11.0)
== END 2024-06-19 23:13 | disposition short-term general hospital (02) ==
PROVIDERS: Emergency Provider Emergency Medicine; PCP Family Medicine; Visit Provider Emergency Medicine
DX: R10.33 Periumbilical pain (principal); F17.220 Nicotine dependence, chewing tobacco, uncomplicated; Z79.899 Other long term (current) drug therapy
CPT/HCPCS: 74177; 80053; 81001; 83605; 83690; 85025; 85027; 85610; 85730; 86850; 86900; 86901; 93005; 96361; 96374; 96375; 96376; 99284; J7030; Q9967; A4216; J2405

== ENCOUNTER → 2024-06-29 | Outpatient (CLI) | payer OTHER, SELFPAY ==
[2024-06-29 17:45] LABS: Absolute Lymphocyte Count 1.36 X10^3/uL (0.83-4.51); Absolute Neutrophil Count 11.2 X10^3/uL (2.0-7.7); Basophil# 0.04 X10^3/uL; Basophil% 0.3 % (0-1); Eosinophil# 0.23 X10^3/uL; Eosinophils% 1.6 % (0-5); Hematocrit 40.5 % (40-54); Hemoglobin 12.7 g/dL (13.0-16.5); Lymphocyte # 1.36 X10^3/ul (0.83-4.51); Lymphocyte % 9.4 % (19-41); Mean Corp Hgb Conc 31.4 g/dL (32-36); Mean Corpuscular Hgb 28.1 pg (27.0-32.0); Mean Corpuscular Volume 89.6 fL (80-94); Mean Platelet Vol. 9.9 fl (6.2-12.0); Monocyte# 1.65 X10^3/uL; Monocyte% 11.4 % (0-10); NRBC Flagged by Analyzer 0 % (0-5); Neutrophil # 11.15 X10^3/uL (2.7-7.7); Neutrophil % 76.7 % (47-70); POSITIVE DIFFERENTIAL YES; Platelet Count 363 K/mm3 (150-450); RBC Distribution Width CV 13.2 % (11.6-14.6); RBC Distribution Width SD 43.1 fl (35.1-43.9); Red Blood Count 4.52 M/mm3 (4.6-6.2); White Blood Count 14.5 K/mm3 (4.4-11.0)
[2024-06-29 17:59] LABS: Differential Indicated SCAN CRITERIA MET
[2024-06-30 11:18] LABS: Pathologist Review Reviewed
== END | disposition home or self-care (01) ==
LOC: BFHLAB 16:00
PROVIDERS: PCP Family Medicine; Visit Provider Family Medicine
DX: D64.9 Anemia, unspecified (principal)
CPT/HCPCS: 36415; 85025

== ENCOUNTER → 2024-07-14 | Outpatient (CLI) | payer OTHER, SELFPAY ==
--- NOTE | 2024-07-14 11:30 | MRI_ITS ---
STUDY: MRI ABDOMEN WITH AND WITHOUT CONTRAST REASON FOR EXAM: Male, 48 years old. R retroperitoneal hematoma of uncertain etiology TECHNIQUE: Standardized fat and water weighted pulse sequences were obtained in all 3 orthogonal planes post contrast administration. 20ML IV CLARISCAN was administered for the contrast portion of the examination. COMPARISON: CT 06/19/2024 FINDINGS: The visualized lung bases are unremarkable. The visualized portions of the heart are within normal limits. Normal liver. Normal gallbladder and extrahepatic biliary system. Normal spleen. Normal pancreas. Normal bilateral adrenal glands. Normal right kidney. Normal left kidney. Normal visualized stomach. Normal small intestine. Near-total resolution of the hematoma within the small bowel mesentery just to the right of the midline at the level the umbilicus. Normal colon. There is non-visualization of the appendix. Normal abdominal aorta. Normal inferior vena cava. Normal retroperitoneum. Normal abdominal wall. Normal osseous structures. MRI/MRI Abd WITH and W/O Contrast IMPRESSION: Near total resolution of hematoma of the small bowel mesentery. Electronically Signed: Gabe Pang MD at 11:10 EDT ,
== END | disposition home or self-care (01) ==
LOC: MRI 10:47
PROVIDERS: PCP Family Medicine; Referring Provider Family Medicine; Visit Provider Family Medicine
DX: K68.3 Retroperitoneal hematoma (principal)
CPT/HCPCS: 74183; A9575

== ENCOUNTER 2025-04-26 14:58 | Emergency (ER) | payer OTHER, SELFPAY ==
[2025-04-26 14:58] VITALS: BP 159/104; PULSE 109; RESP 15; TEMP 36; O2SAT 100; BMI 35.2
--- NOTE | 2025-04-26 15:23 | RAD_ITS ---
PROCEDURE: KNEE 4 OR MORE VIEWS 04/26/2025 REASON FOR EXAM: INJURY/PAIN TECHNIQUE: 4 view(s) of the right knee COMPARISON: None. FINDINGS: Bones: No fracture. No suspicious bone lesion. Joints: Normal alignment. Mild degenerative changes. Effusion: No effusion. Soft tissues: Soft tissues are unremarkable. RAD/Knee 4 or More Views IMPRESSION: DEGENERATIVE OSTEOARTHROSIS. NO ACUTE FINDINGS. Reading Location: [id number]
--- NOTE | 2025-04-26 15:23 | ED.VIS.LOWEX ---
HPI History of Present Illness HPI Narrative: Patient presents with right knee pain that began 11 days ago. Patient states she was carrying a backpack sprayer on his back and went down some steps. Patient states he stepped down hard onto his right lower extremity. Patient states his knee twisted. Patient states it has been painful ever since. Patient states it is sharp. Patient states it is worse with any weightbearing or movement. Patient denies any paresthesias or weakness. Patient denies any other injuries. Chief Complaint: Lower Extremity Injury Informant: patient Onset/Context/Timing Onset: Days (11) Context: Sudden Onset Timing: Continuous Quality of Pain: Sharp Location: Right knee Worsened by: Weightbearing and ambulation Relieved by: Nothing Associated Symptoms Associated Symptoms: Negative for Parasthesia, Weakness or Loss of Funtion [facility] Medical History (Updated 04/26/25 @ 16:[address] Yaniv Soni DO) Hypertension ADHD Home Medications ?Medication ?Instructions ?Recorded ?Last Taken ?Type atomoxetine 40 mg capsule 80 mg PO DAILY 04/29/19 Unknown History buspirone 15 mg tablet 10 mg PO TID 04/29/19 Unknown History Allergy/AdvReac Type Severity Reaction Status Date / Time No Known Allergies Allergy Verified 04/26/25 14:58 Surgical History no surgical history no surgical history Social History Smoking Status: Current every day smoker tobacco type: smokeless tobacco ROS ROS ED Constitutional Constitutional ED: Denies chills or fever(s) Eyes Eyes: Denies blurry vision or change in vision ENT ENT ED: Denies rhinorrhea or sore throat Cardiovascular Cardiovascular: Denies chest pain or palpitations Respiratory/Chest Respiratory/Chest: Denies cough or dyspnea Gastrointestinal Gastrointestinal: Denies nausea or vomiting Genitourinary Genitourinary ED: Denies dysuria or hematuria Musculoskeletal Musculoskeletal: Denies back pain or neck pain Integumentary Denies abscess or rash Neurologic Neurologic: Denies headache(s) or weakness Allergic/Immunologic Allergic/Immunologic ED: Denies mouth swelling or urticaria EXAM Physical Exam Const Vital Signs: 04/26/25 14:58 Temperature 96.8 F L Temperature Source Temporal Pulse Rate 109 H Respiratory Rate 15 Blood Pressure 159/104 H Blood Pressure Mean 122 Pulse Ox 100 Oxygen Delivery Method Room Air Positive well nourished and well developed General Appearance ED: well developed and NAD HEENT Reports moist mucous membranes Neck full ROM and supple Extremity Extremity Narrative: There is tenderness over the medial aspect of the right knee. There is some mild edema. There is no ecchymosis. There is no deformity noted. Range of motion was limited in all motions of the right knee secondary to pain. There is mild laxity with valgus testing. There is no laxity with varus testing. Jonathan's test was negative. Posterior tibial pulses are equal bilaterally. Sensation was intact to light touch in all digits. Strength is 5/5 bilaterally in the lower extremities. Neuro oriented x3, CN's II-XII intact bilaterally, moves all extremities and no sensory deficits noted Sensorium / Orientation: alert Motor Exam: strength 5/5 throughout Psych mental status grossly normal MDM MDM MDM Narrative Medical decision making narrative: Differential diagnosis includes sprain, contusion, and occult fracture. X-rays of the right knee will be obtained to assess for occult fracture. Radiography Diagnostic Testing: Clinical Impression(s) from Imaging Studies Knee X-Ray 04/26/25 15:23 IMPRESSION: DEGENERATIVE OSTEOARTHROSIS. NO ACUTE FINDINGS. Reading Location: [facility] X-rays of the right knee were obtained. There are 4 views. On my independent interpretation, there is no acute fracture or loose body noted. There are some degenerative changes noted. Radiologist also interpreted the x-rays and agrees. Treatment and Re-Evaluation Narrative: Patient was advised of his findings. Patient was instructed to ice and elevate the right knee. Patient declined crutches. Patient was instructed to follow-up with his primary care physician in 5 to 7 days. Patient was instructed to return if worse in any way. Patient understood and was agreeable with the plan. All questions were answered. Discharge Plan Triage Chief Complaint: Lower Extremity Injury ED Provider: Yaniv Soni Dx/Rx/DC Orders Clinical Impression: Right knee sprain, Chewing tobacco use Instructions: ED Knee Sprain Prescriptions: No Action buspirone 15 MG tablet 10 mg PO TID atomoxetine 40 MG capsule 80 mg PO DAILY Primary Care Provider: Jonas Betancourt Referrals: Jonas Betancourt DO [Primary Care Provider] - 5-7 Days Print Language: Mohawk Disposition Disposition: Home, Self Care
[2025-04-26 17:01] VITALS: BP 149/93; PULSE 94; RESP 19; TEMP 36.7; O2SAT 98
== END 2025-04-26 17:04 | disposition home or self-care (01) ==
PROVIDERS: Emergency Provider Emergency Medicine; PCP Family Medicine; Visit Provider Emergency Medicine
DX: S83.91XA Sprain of unspecified site of right knee, initial encounter (principal); F17.220 Nicotine dependence, chewing tobacco, uncomplicated; X50.1XXA Overexertion from prolonged static or awkward postures, initial encounter; Y93.89 Activity, other specified; I10 Essential (primary) hypertension; F90.9 Attention-deficit hyperactivity disorder, unspecified type; Z79.899 Other long term (current) drug therapy
CPT/HCPCS: 73564; 99282